=== PATIENT | male | born 2000 | race Caucasian/White ===

== ENCOUNTER 2019-03-05 10:41 | Emergency (ER) | payer BC, OTHER ==
[~2019-03-05] VITALS: Ht 175.3 cm; Wt 84.3 kg
[2019-03-05 11:56] LABS: BASO % 0.5 % (0.0-1.0); EOS % 0.5 % (0.0-3.0); HEMATOCRIT 45.2 % (42.0-52.0); HEMOGLOBIN 15.6 g/dl (13.5-17.5); LYMPH # 1.1 10^3/uL (1.5-6.5); LYMPH % 29.6 % (24.0-44.0); MEAN CORPUSCULAR HEMOGLOBIN 28.2 pg (27.0-33.0); MEAN CORPUSCULAR HGB CONC 34.5 g/dl (32.0-36.5); MEAN CORPUSCULAR VOLUME 81.6 fl (80.0-96.0); MONO # 0.3 10^3/uL (0.0-0.8); MONO % 8.3 % (0.0-5.0); NEUTROPHILS # 2.3 10^3/uL (1.8-7.7); NEUTROPHILS % 60.6 % (36.0-66.0); PLATELET COUNT, AUTOMATED 219 10^3/uL (150-450); RED BLOOD COUNT 5.54 10^6/uL (4.30-6.10); WHITE BLOOD COUNT 3.9 10^3/uL (4.0-10.0)
[2019-03-05] MEDS ORDERED: GI COCKTAIL 50ML BTL(HYOSCYAMINE/MAALOX/LIDOCAINE VISCOUS)(1:3:1) PO ONE (12:00)
[2019-03-05 12:23] LABS: ALT/SGPT 25 U/L (12-78); BILIRUBIN,DIRECT 0.2 MG/DL (0.0-0.2); BILIRUBIN,TOTAL 0.9 MG/DL (0.2-1.0); BLOOD UREA NITROGEN 15 MG/DL (7-18); CALCIUM LEVEL 9.9 MG/DL (8.5-10.1); CARBON DIOXIDE LEVEL 21 MEQ/L (21-32); CHLORIDE LEVEL 109 MEQ/L (98-107); GLUCOSE, FASTING 83 MG/DL (70-100); LIPASE 86 U/L (73-393); POTASSIUM SERUM 3.1 MEQ/L (3.5-5.1); SODIUM LEVEL 139 MEQ/L (136-145); TOTAL PROTEIN 8.4 GM/DL (6.4-8.2)
[2019-03-05 13:58] VITALS: BP 125/76
[2019-03-05] MEDS ORDERED: PRIL20TA2 PO (14:00)
== END 2019-03-05 14:18 | disposition home or self-care (01) ==
LOC: M ED 10:41
DX: K21.0 Gastro-esophageal reflux disease with esophagitis (principal); R56.9 Unspecified convulsions

== ENCOUNTER 2021-05-27 16:36 | Emergency (ER) | payer OTHER ==
[~2021-05-27] VITALS: Ht 172.7 cm; Wt 84.9 kg
[~2021-05-27 16:36] MED LIST: PRIL20TA2 PO
[2021-05-27 16:37] VITALS: BP 132/78
--- NOTE | 2021-05-27 17:24 | REP ---
INDICATION: pain. COMPARISON: None. TECHNIQUE: Four views of the right ankle are provided. FINDINGS: Ankle mortise is intact. No fracture or subluxation is seen. Bones, joints and soft tissues are radiographically unremarkable. IMPRESSION: Negative radiographs of the right ankle. <Electronically signed by Denis Calero > 05/27/21 0400
[2021-05-27] MEDS ORDERED: IBUP80TA PO (18:57)
== END 2021-05-27 19:41 | disposition home or self-care (01) ==
LOC: M ED 16:36
DX: M25.571 Pain in right ankle and joints of right foot (principal); R56.9 Unspecified convulsions; F12.20 Cannabis dependence, uncomplicated